=== PATIENT | male | born 1990 | race Two or more races ===

== ENCOUNTER 2023-08-27 20:10 | Emergency (ER) | payer OTHER ==
[2023-08-27 20:16] VITALS: BP 122/75; PULSE 83; RESP 17; TEMP 97.6; BMI 27.5
[2023-08-27] MEDS ORDERED: IBUPROFEN 600 MG TABLET (FP) PO ONE (20:53)
[2023-08-27] MEDS: IBUPROFEN 600 MG TABLET (FP) PO ONE (20:57)
== END 2023-08-27 21:02 | disposition home or self-care (01) ==
LOC: JERFT 20:10
DX: S91.331A Puncture wound without foreign body, right foot, initial encounter (principal); L23.7 Allergic contact dermatitis due to plants, except food; W45.0XXA Nail entering through skin, initial encounter
CPT/HCPCS: 73630-TC-RT-FY; 99283-25

== ENCOUNTER 2024-01-12 00:29 | Emergency (ER) | payer OTHER ==
[2024-01-12 00:49] VITALS: BP 128/82; PULSE 74; RESP 18; TEMP 98.4; BMI 25.7
== END 2024-01-12 02:05 | disposition home or self-care (01) ==
LOC: JER 00:29
DX: R05.9 Cough, unspecified (principal); B34.9 Viral infection, unspecified; R50.9 Fever, unspecified; J02.9 Acute pharyngitis, unspecified; Z20.822 Contact with and (suspected) exposure to COVID-19
CPT/HCPCS: 0241U-QW; 71046-TC-FY; 99284-25

== ENCOUNTER 2024-03-30 10:07 | Emergency (ER) | payer OTHER ==
[2024-03-30 10:18] VITALS: BP 126/73; RESP 18; TEMP 99.4; BMI 27.1
[2024-03-30] MEDS ORDERED: ONDANSETRON *ODT* 4 MG TABLET ONE (10:33)
[2024-03-30] MEDS ORDERED: KETOROLAC TROMETHAMINE 30 MG/1 ML VIAL ONE (10:33)
[2024-03-30] MEDS: KETOROLAC TROMETHAMINE 30 MG/1 ML VIAL IM ONE (10:37)
[2024-03-30] MEDS: ONDANSETRON *ODT* 4 MG TABLET SL ONE (10:38)
[2024-03-30 11:25] VITALS: PULSE 107
== END 2024-03-30 11:35 | disposition home or self-care (01) ==
LOC: JER 10:07
PROC: 3E0133Z Introduction of Anti-inflammatory into Subcutaneous Tissue, Percutaneous Approach (ICD-10-PCS; principal; 2024-03-30)
DX: K52.9 Noninfective gastroenteritis and colitis, unspecified (principal); R11.10 Vomiting, unspecified; R00.0 Tachycardia, unspecified; R50.9 Fever, unspecified
CPT/HCPCS: 99284-25; Q0162